=== PATIENT | male | born 1990 | race Caucasian/White ===

== ENCOUNTER 2022-03-14 07:26 | Emergency (ER) | payer OTHER, SELFPAY ==
--- NOTE | ~2022-03-14 | XR_ITS ---
EXAMINATION: XR SHOULDER, RIGHT CLINICAL INFORMATION: Pain COMPARISON: None TECHNIQUE: Three views of the right shoulder. FINDINGS: There is no evidence of acute fracture or dislocation of the right shoulder. Glenohumeral joint appears unremarkable. No calcific tendinitis. No significant acromioclavicular joint degenerative change. No widening of the coracoclavicular space. XR/XR shoulder RT min 2V IMPRESSION: No significant bony abnormality of the right shoulder identified.
[2022-03-14 07:36] VITALS: BP 118/70; PULSE 84; RESP 18; TEMP 36.6; O2SAT 98; BMI 23.5
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
== END 2022-03-14 08:50 | disposition home or self-care (01) ==
PROVIDERS: Emergency Provider Emergency Medicine
DX: S40.011A Contusion of right shoulder, initial encounter (principal); M25.511 Pain in right shoulder; Y33.XXXA Other specified events, undetermined intent, initial encounter; Y93.9 Activity, unspecified; Y92.9 Unspecified place or not applicable; Y99.0 Civilian activity done for income or pay
CPT/HCPCS: 73030; 99282; 99283

== ENCOUNTER → 2022-03-15 13:18 | Outpatient (BNVA) | payer OTHER, SELFPAY | PROVIDERS: Visit Provider Internal Medicine | DX: M25.511 Pain in right shoulder (principal) | CPT/HCPCS: 99202 ==

== ENCOUNTER → 2022-03-18 13:38 | Outpatient (BNVA) | payer OTHER, SELFPAY | PROVIDERS: Visit Provider Internal Medicine | DX: M25.511 Pain in right shoulder (principal) | CPT/HCPCS: 72050; 99214 ==

== ENCOUNTER → 2022-03-23 08:17 | Outpatient (BNVA) | payer OTHER, SELFPAY | PROVIDERS: Visit Provider Internal Medicine | DX: M25.511 Pain in right shoulder (principal) | CPT/HCPCS: 99213 ==

== ENCOUNTER → 2022-04-06 08:36 | Outpatient (BNVA) | payer OTHER, SELFPAY | PROVIDERS: Visit Provider Internal Medicine | DX: M25.511 Pain in right shoulder (principal) | CPT/HCPCS: 99213 ==

== ENCOUNTER → 2022-04-19 14:44 | Outpatient (BNVA) | payer OTHER, SELFPAY | PROVIDERS: Visit Provider Internal Medicine | DX: M25.511 Pain in right shoulder (principal) | CPT/HCPCS: 99213 ==

== ENCOUNTER 2022-04-22 18:49 | Outpatient (REF) | payer OTHER, SELFPAY ==
--- NOTE | ~2022-04-22 | MR_ITS ---
EXAMINATION: MR CERVICAL SPINE WITHOUT CONTRAST CLINICAL INFORMATION: Right shoulder pain and pain at base of neck. COMPARISON: X-ray cervical spine from 03/18/2022. TECHNIQUE: Multiplanar, multisequential imaging of the cervical spine was performed without contrast. FINDINGS: VERTEBRAL BODIES AND PARASPINAL SOFT TISSUES: The marrow signal is within normal limits. There is mildly reduced intradiscal signal from the C2 through the C7 levels as a result of degeneration. Slight retrosubluxation noted at the C4-C5 level. There are no compression fractures. The paraspinal soft tissues are normal. The vertebral artery flow-voids are maintained. The imaged lung apices are grossly clear. CERVICOMEDULLARY JUNCTION AND VISUALIZED POSTERIOR FOSSA: The craniovertebral junction and imaged portions of the brain parenchyma appear normal. No cord signal abnormality or syrinx is seen. 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 SPINAL LEVELS: C2-C3: Mild right foraminal narrowing and minimal uncovertebral joint spurring. No focal disc protrusion or central canal stenosis. C3-C4: Shallow disc-osteophyte complex minimally impressing upon the ventral thecal sac. Rezltnzi-cm-nlgtxo right foraminal narrowing and oybu-gg-xpnuxjqk left foraminal encroachment. C4-C5: Mild retrosubluxation and broad-based disc-osteophyte complex with moderate central canal stenosis and cnsqpywi-on-xcrbbf foraminal narrowing, worse on the right side. C5-C6: Shallow disc bulge and small right paracentral disc protrusion with mild facet arthropathy. Ffhr-ui-rvhahnhw central canal stenosis. Wsuetzoq-ov-dkghmm bilateral foraminal narrowing, worse on the right side. C6-C7: Shallow right paracentral disc protrusion. Mild central canal stenosis. Uncovertebral joint spurring contributing to iklhxpvw-fa-eyojni bilateral foraminal encroachment. C7-T1 and T1-T2: No disc pathology. No central canal stenosis or foraminal narrowing. On sagittal imaging at the T2-T3 level, there is moderate disc space narrowing and chronic endplate degenerative changes with a focal right subarticular to foraminal disc protrusion and bilateral uncovertebral joint spurring resulting in severe foraminal encroachment and mild impression upon the right lateral aspect of the cord. MR/MR cervical spine wo con IMPRESSION: 1. Multilevel cervical spondylosis, most significant at the C4-C5 level with moderate central canal stenosis and significant foraminal narrowing, worse on the right side. 2. Wejcjuil-rm-bszfrq right foraminal narrowing with a disc-osteophyte complex at the C3-C4 level. 3. Hfdb-yt-nkampxms central canal stenosis and ogcduuqk-sr-epyjlv foraminal narrowing at the C5-C6 level with a small right paracentral disc protrusion. 4. Mild central canal stenosis and dbvdehqo-sm-ldrebf bilateral foraminal narrowing at the C6-C7 level with a shallow right paracentral disc protrusion. 5. Moderate degenerative disc disease at the T2-T3 level with a focal right subarticular to right foraminal disc protrusion and endplate spurring resulting in mild impression upon the right lateral aspect of the cord and severe bilateral foraminal encroachment.
== END 2022-04-22 18:50 | disposition home or self-care (01) ==
LOC: HO.MRI 18:49
PROVIDERS: Visit Provider Internal Medicine
DX: M54.2 Cervicalgia (principal); M25.511 Pain in right shoulder
CPT/HCPCS: 72141

== ENCOUNTER 2022-06-11 09:00 | Outpatient (RCR) | payer OTHER, SELFPAY ==
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
--- NOTE | 2022-06-11 17:25 | MHC.PT.DC ---
[facility] [place] Office [place] Office [place] Office [address] Maryan Yung [address] [phone] F: [phone] F: [phone] F: [phone] F: [phone] Physical Therapy Discharge Report Diagnosis: R radicular arm pain. Date of Surgery: Date of Evaluation: 03/23/22 Date of Discharge: 06/11/22 Treatments to Date: 17 Cancellations to Date: No Shows to Date: Discharge Status: Achieved Goals Improved Function Independent with HEP Discharge Summary: Tian has been an active and motivated participant in his therapy; he is in agreement with DC today as he reports he has no cervical pain and his referred symptoms are abolished; he is I with his home program and has met all of his therapeutic goals at this time. Electronically signed by: Eric Dove PT. Please sign and return to therapist. Thank you for your referral.
== END 2022-06-11 17:26 | disposition home or self-care (01) ==
LOC: HO.PTCHIC 09:00
PROVIDERS: Visit Provider Internal Medicine
DX: M25.511 Pain in right shoulder (principal)
CPT/HCPCS: 97014; 97110; 97140; 97161; 97164; 97530